=== PATIENT | female | born 1995 | race Caucasian/White ===

== ENCOUNTER 2019-09-28 19:23 | Emergency (ER) | payer OTHER ==
[~2019-09-28] VITALS: Ht 170.2 cm; Wt 82.7 kg
[2019-09-28] MEDS ORDERED: NS 1,000 ML IV ONE (20:15)
[2019-09-28] MEDS ORDERED: ONDANSETRON 4MG/2ML VIAL (J2405) IV ONE (20:15)
[2019-09-28 20:18] LABS: BASO % 0.3 % (0.0-1.0); EOS # 0.1 10^3/uL (0.0-0.5); HEMATOCRIT 45.3 % (36.0-47.0); HEMOGLOBIN 15.4 g/dl (12.0-15.5); LYMPH # 1.8 10^3/uL (1.5-5.0); MEAN CORPUSCULAR HEMOGLOBIN 31.8 pg (27.0-33.0); MEAN CORPUSCULAR VOLUME 93.4 fl (80.0-96.0); MONO # 0.6 10^3/uL (0.0-0.8); MONO % 6.5 % (0.0-5.0); NEUTROPHILS # 6.5 10^3/uL (1.5-8.5); PLATELET COUNT, AUTOMATED 203 10^3/uL (150-450); RED BLOOD COUNT 4.85 10^6/uL (4.00-5.40)
[2019-09-28 20:26] LABS: ALBUMIN 4.1 GM/DL (3.2-5.2); ALT/SGPT 23 U/L (12-78); BILIRUBIN,DIRECT 0.2 MG/DL (0.0-0.2); BILIRUBIN,TOTAL 0.6 MG/DL (0.2-1.0); BLOOD UREA NITROGEN 11 MG/DL (7-18); CALCIUM LEVEL 9.1 MG/DL (8.5-10.1); CARBON DIOXIDE LEVEL 28 MEQ/L (21-32); CHLORIDE LEVEL 107 MEQ/L (98-107); CK-MB VALUE MASS 3.5 NG/ML (<3.6); CPK CREATINE PHOSPHOKINASE 254 U/L (26-192); CREATININE FOR GFR 0.77 MG/DL (0.55-1.30); GLOMERULAR FILTRATION RATE > 60.0 (>60); GLUCOSE, FASTING 100 MG/DL (70-100); LIPASE 92 U/L (73-393); MB/CK RELATIVE INDEX 1.38 (< OR =4); POTASSIUM SERUM 3.7 MEQ/L (3.5-5.1); SODIUM LEVEL 141 MEQ/L (136-145); TOTAL PROTEIN 7.1 GM/DL (6.4-8.2); TROPONIN I < 0.02 NG/ML (< 0.10)
[2019-09-28 22:30] VITALS: BP 138/88
--- NOTE | 2019-09-29 08:29 | REP ---
Chest x-ray: Two views. History: Abdominal pain. Findings: EKG monitoring electrodes are seen overlying the chest. Lungs are well inflated and clear. The pleural angles are sharp. Heart size is normal. Pulmonary vasculature is not increased. Impression: Negative chest x-ray. Electronically Signed by Ronald Gomez MD 09/29/2019 08:21 A
--- NOTE | 2019-09-30 11:57 | ECGEPIP ---
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
== END 2019-09-28 22:59 | disposition home or self-care (01) ==
LOC: M ED 19:23
DX: F10.20 Alcohol dependence, uncomplicated (principal); F31.9 Bipolar disorder, unspecified; F17.210 Nicotine dependence, cigarettes, uncomplicated
CPT/HCPCS: 71046; 80048; 80076; 82550; 82553; 83690; 85025; 93005; 93041; 96361; 96374; 99285; J2405

== ENCOUNTER 2019-11-28 14:17 | Emergency (ER) | payer MEDICAID, OTHER ==
[~2019-11-28] VITALS: Ht 170.2 cm; Wt 80.9 kg
--- NOTE | 2019-11-28 15:27 | REP ---
Left ankle series: Four views. History: Trauma. Findings: Four views left ankle demonstrate anterolateral soft-tissue swelling. Ankle mortise is intact. No fractures seen. Impression: Anterolateral swelling. No fracture noted. Electronically Signed by Ronald Gomez MD 11/28/2019 03:19 P
--- NOTE | 2019-11-28 15:47 | REP ---
RIGHT KNEE, FIVE VIEWS: There is no evidence of an acute fracture, dislocation or intrinsic bone disease. IMPRESSION: No fracture or dislocation. Electronically Signed by Mike Blake MD 11/28/2019 05:40 P
[2019-11-28] MEDS ORDERED: ACETAMINOPHEN 325 MG TAB PO ONE (16:00)
[2019-11-28 17:10] VITALS: BP 114/67
== END 2019-11-28 17:10 | disposition home or self-care (01) ==
LOC: M ED 14:17
DX: S86.811A Strain of other muscle(s) and tendon(s) at lower leg level, right leg, initial encounter (principal); S93.402A Sprain of unspecified ligament of left ankle, initial encounter; Y04.8XXA Assault by other bodily force, initial encounter; Y92.018 Other place in single-family (private) house as the place of occurrence of the external cause; F17.210 Nicotine dependence, cigarettes, uncomplicated

== ENCOUNTER 2020-01-16 07:55 | Emergency (ER) | payer MEDICAID, OTHER ==
[~2020-01-16] VITALS: Ht 170.2 cm; Wt 78.3 kg
[2020-01-16] MEDS ORDERED: TRAZ-186 PO (08:04)
--- NOTE | 2020-01-16 10:13 | REP ---
RIGHT ANKLE, FOUR VIEWS: There is no evidence of an acute fracture, dislocation or intrinsic bone disease. The ankle mortise is anatomic. IMPRESSION: No fracture or dislocation. Electronically Signed by Mike Blake MD 01/16/2020 03:56 P
[2020-01-16 10:24] LABS: INFLUENZA A AMPLIFICATION POSITIVE (NEGATIVE); INFLUENZA B AMPLIFICATION NEGATIVE (NEGATIVE)
--- NOTE | 2020-01-16 11:15 | REP ---
Duplex extremity venous ultrasound: Right lower extremity. History: Right lower extremity paresthesias. Tail with ambulation. Rule out DVT . Findings: The deep veins are anechoic and fully compressible from the groin to the popliteal fossa in the right lower extremity. Color flow imaging is homogeneous. Spectral Doppler interrogation demonstrates intact respiratory variation in flow and normal manual augmentation of flow. There is no evidence of deep vein thrombosis. Impression: Negative right lower extremity duplex venous ultrasound. No evidence of deep vein thrombosis. Electronically Signed by Ronald Gomze MD 01/16/2020 11:06 A
--- NOTE | 2020-01-16 12:00 | REP ---
RIGHT LOWER EXTREMITY DUPLEX DOPPLER ARTERIAL ULTRASOUND: Real-time ultrasound evaluation and duplex Doppler interrogation of right lower extremity arterial system is performed. JESSIE is 1.1. Triphasic waveforms are seen throughout. There is occlusion of the very distal right posterior tibial artery below the level of the ankle. Otherwise, more proximally there is no significant narrowing, stenosis and certainly no evidence of arterial occlusion. Normal flow velocities are visualized. 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 Otherwise there is no other evidence of significant luminal narrowing or stenosis. No arterial occlusion. Electronically Signed by Mike Blake MD 01/16/2020 04:08 P
[2020-01-16] MEDS ORDERED: NICOTINE 21MG/24HR 1 EA TRANSDERMAL TD ONE (13:00)
[2020-01-16 13:46] VITALS: BP 102/71
--- NOTE | 2020-01-16 14:40 | CR.PDOC ---
General Date of Consultation: Jan 16, 2020 Consultation REASON FOR CONSULTATION/CHIEF COMPLAINT: Right foot complaints HISTORY OF PRESENT ILLNESS: is a 24-year-old patient with complaint s of paleness to the plantar aspect of her foot when she ambulates, but improved when she is at rest or elevates her leg. She also describes numbness and tingling when the paleness occurs. She says this been occurring since October 2019, and she never had episodes like this before that. She is able to ambulate when plantars aspect of her foot does become pale, but it does feel very uncomfortable. She says that it takes a while for the color and feeling to return when this occurs. It does not happen on the left foot. She denies any history of trauma or injury to the right ankle or foot. She had an arterial duplex that revealed triphasic flow through the arterial system with an JESSIE greater than 1.1, but a short segment occlusion of the posterior tibial artery at the ankle. She is a smoker, smokes 1-2 packs per day. I examined her foot, and she has a warm pink foot with palpable DP pulse, triphasic signal at the PT and DP on the right and left, and less than 1 second capillary refill in both feet. There is no ischemic changes present in either lower extremity. She says when her legs are elevated she does not have any of the symptoms. She says it does not depend on whether or not it is cold outside, although the symptoms in general did start when the winter season was underway. She is wearing a nicotine patch, which I encourage her to avoid. If she is having any kind of vasospastic episodes or phenomenon similar to Raynauds phenomenon, smoking cessation and avoiding nicotine vasoconstriction will be critical to avoid vasospastic events. It certainly is possible that she has some other neuropathic cause for vasoconstriction, but this seems unlikely. She suffered a fall a while back with a light sprain of her right knee, but no posterior dislocation no arterial injur y and did not have trouble ambulating after the event. To be honest, I am not exactly sure what is causing the plantar aspect of her foot to appear white and numb, but my guess is that his vasospasm. I think it would be worthwhile to get a CTA to get a better image of her lower extremity vascular system. I'd like to see if there is any arterial injury, dissection, or other phenomenon that could have led to an embolic event at the posterior tibial artery, and what her arterial limitations might be. The patient does not want to get this imaging today, and says she would like to come back and do the outpatient clinic. From my standpoint this is fine. She has no limb threatening ischemic changes that I can see. We had a lengthy discussion about smoking cessation and the importance of this. The patient at this point does not necessarily ready to quit. She does occasionally smoke marijuana but denies any other illicit drug use, and does not use LSD, which can cause severe vasospasm. She does not take any vasoconstr ictive medications. I think at this point my recommendations are for smoking cessation, keeping the foot warm, and following up outpatient with a CTA of the abdomen and pelvis and lower extremity. The patient is agreeable to this plan and was extensively counseled. ALLERGIES: Please see below. HOME MEDICATIONS: Please see below. PAST MEDICAL HISTORY: 1. Anxiety and depression 2. Tobacco abuse PAST SURGICAL HISTORY: None FAMILY HISTORY: Heart disease SOCIAL HISTORY: Positive tobacco alcohol and marijuana use. REVIEW OF SYSTEMS: CONSTITUTIONAL: Denies fevers chills HEENT: Denies vision changes or dysphagia CARDIOVASCULAR: Denies chest pain or palpitations RESPIRATORY: Denies shortness of breath or cough GENITOURINARY: Denies dysuria MUSCULOSKELETAL: Denies claudication or trouble with ambulation GASTROINTESTINAL: Denies nausea vomiting diarrhea SKIN: Denies rashes or skin cancers NEUROLOGICAL: Denies headaches or seizures PSYCHIATRIC: Positive anxiety depression ENDOCRINE: Denies diabetes or thyroid disease HEMATOLOGIC/LYMPHATIC: Denies anemia ALLERGIC/IMMUNOLOGIC: Denies PHYSICAL EXAMINATION: VITAL SIGNS: Please see below. GENERAL APPEARANCE: Medically stable no acute distress HEENT: Normocephalic vision grossly intact tympanic membranes intact RESPIRATORY: Clear to auscultation CARDIOVASCULAR: Regular rate and rhythm ABDOMEN: Soft nontender nondistended EXTREMITIES: Bilateral lower extremities with palpable DP and left palpable PT pulses. Triphasic signal over the DP and PT bilateral lower extremities. Feet are warm and well perfused with less than 1 second capillary refill. NEUROLOGICAL: Alert and oriented 3, moves all extremities equally, sensation and motor intact bilateral lower and upper extremities PSYCHIATRIC: Pleasant and cooperative LABORATORY DATA: Please see below. ASSESSMENT/PLAN: 24-year-old patient with complaint of the plantar aspect of her right foot turning white with numbness and tingling when she ambulates 1. Recommend smoking cessation. Recommend avoiding nicotine replacement products as this can make vasoconstriction much worse 2. Recommend keeping feet very warm during the winter to prevent vasoconstri ction 3. Recommend follow up in clinic with a CTA of the abdomen pelvis and lower extremity runoff to make sure we are not missing a more significant vascular pathology We appreciate the opportunity to participate in the care of this patient. Vital Signs/I&O Vital Signs Date Time Temp Pulse Resp B/P (MAP) Pulse Ox O2 Delivery O2 Flow Rate FiO2 01/16/20 13:46 97.3 97 20 102/71 (81) 96 Room Air Laboratory Data Labs 24H Laboratory Tests 2 01/16/20 09:48: Influenza Type A (RT-PCR) POSITIVEH, Influenza Type B (RT-PCR) NEGATIVE Microbiology Microbiology 01/16/20 Group A Streptococcus Screen (ANTONELLA), Received Pending Allergies Coded Allergies: No Known Drug Allergies (Verified Allergy, Unknown, 09/28/19) Home Medications Scheduled Trazodone HCl (Trazodone HCl) 50 Mg Tablet, 1 TAB PO QPM for 30 Days, #30 (Reported) YANA GOMEZ MD Jan 16, 2020 14:40
[2020-01-17] MEDS ORDERED: ASPI81TA85 PO (07:58)
== END 2020-01-16 14:07 | disposition home or self-care (01) ==
LOC: M ED 07:55
DX: I74.3 Embolism and thrombosis of arteries of the lower extremities (principal); R20.2 Paresthesia of skin; J09.X2 Influenza due to identified novel influenza A virus with other respiratory manifestations; F10.10 Alcohol abuse, uncomplicated; F31.9 Bipolar disorder, unspecified; F17.210 Nicotine dependence, cigarettes, uncomplicated; Z79.82 Long term (current) use of aspirin; Z79.899 Other long term (current) drug therapy

== ENCOUNTER 2020-01-17 07:51 | Emergency (ER) | payer OTHER ==
[~2020-01-17] VITALS: Ht 170.2 cm; Wt 77.2 kg
[~2020-01-17 07:51] MED LIST: TRAZ-186 PO
[2020-01-17] MEDS ORDERED: ASPI81TA85 PO (07:58)
[2020-01-17] MEDS ORDERED: ISOVUE-370 76% 100ML VIAL (Q9967) As Ordered ONE (08:51)
--- NOTE | 2020-01-17 10:25 | REP ---
CT ANGIOGRAM ABDOMINAL AORTA AND BILATERAL LOWER EXTREMITIES: CT angiogram abdominal aorta and bilateral lower extremities performed following the intravenous administration of 100 mL of Isovue-370. Saggital, coronal, and MIP reconstruction images performed. Visualized lung bases are clear. The liver, spleen, adrenals, pancreas, and kidneys are unremarkable, except for a cyst in the upper pole of the left kidney, 2.7 cm in diameter. Abdominal aorta is normal in caliber with no aneurysm. There is no adenopathy, free air, or free fluid in the abdomen or pelvis. No pelvic mass is seen. The urinary bladder is not well distended and not well evaluated. Normal-appearing patent mesenteric arteries and renal arteries are noted. Common iliac, external iliac, internal iliac, common femoral, superficial femoral, and popliteal arteries demonstrate no significant narrowing or stenosis. There is no arterial occlusion bilaterally. There appear to be tiny hypoplastic peroneal arteries symmetrically bilaterally. There is two-vessel runoff into each foot. IMPRESSION: No significant arterial stenosis. No arterial occlusion. Electronically Signed by Mike Blake MD 01/17/2020 07:43 P
[2020-01-17 10:58] VITALS: BP 102/60
== END 2020-01-17 10:59 | disposition home or self-care (01) ==
LOC: M ED 07:51
DX: M79.671 Pain in right foot (principal); Z79.82 Long term (current) use of aspirin; F17.210 Nicotine dependence, cigarettes, uncomplicated
CPT/HCPCS: 36415; 75635; 80047; 84702; 99284; Q9967

== ENCOUNTER 2020-01-31 18:22 | Emergency (ER) | payer OTHER ==
[~2020-01-31] VITALS: Ht 170.2 cm; Wt 78.8 kg
[~2020-01-31 18:22] MED LIST changes: +ASPI81TA85 PO
[2020-01-31 19:29] LABS: BASO % 0.3 % (0.0-1.0); EOS # 0.1 10^3/uL (0.0-0.5); HEMATOCRIT 44.4 % (36.0-47.0); HEMOGLOBIN 15.3 g/dl (12.0-15.5); LYMPH # 2.2 10^3/uL (1.5-5.0); MEAN CORPUSCULAR HEMOGLOBIN 33.2 pg (27.0-33.0); MEAN CORPUSCULAR HGB CONC 34.5 g/dl (32.0-36.5); MEAN CORPUSCULAR VOLUME 96.3 fl (80.0-96.0); MONO # 0.6 10^3/uL (0.0-0.8); NEUTROPHILS # 6.7 10^3/uL (1.5-8.5); NEUTROPHILS % 69.4 % (36.0-66.0); PLATELET COUNT, AUTOMATED 180 10^3/uL (150-450); RED BLOOD COUNT 4.61 10^6/uL (4.00-5.40); WHITE BLOOD COUNT 9.7 10^3/uL (4.0-10.0)
[2020-01-31 19:37] LABS: AMPHETAMINES LEVEL URINE NEGATIVE (NEGATIVE); BARBITURATES URINE NEGATIVE (NEGATIVE); BENZODIAZEPINES URINE NEGATIVE (NEGATIVE); CANNABINOIDS URINE POSITIVE (NEGATIVE); COCAINE METABOLITE URINE NEGATIVE (NEGATIVE); METHADONE URINE NEGATIVE (NEGATIVE); OPIATES URINE NEGATIVE (NEGATIVE); PHENCYCLIDINE URINE NEGATIVE (NEGATIVE)
[2020-01-31] MEDS ORDERED: NS 1,000 ML IV ONE (19:45)
[2020-01-31 19:58] LABS: ACETAMINOPHEN LEVEL < 2.0 UG/ML (10.0-30.0); ALBUMIN 3.5 GM/DL (3.2-5.2); ALT/SGPT 21 U/L (12-78); BILIRUBIN,DIRECT 0.2 MG/DL (0.0-0.2); BILIRUBIN,TOTAL 0.5 MG/DL (0.2-1.0); BLOOD UREA NITROGEN 11 MG/DL (7-18); CALCIUM LEVEL 8.3 MG/DL (8.5-10.1); CARBON DIOXIDE LEVEL 24 MEQ/L (21-32); CHLORIDE LEVEL 111 MEQ/L (98-107); CPK CREATINE PHOSPHOKINASE 150 U/L (26-192); CREATININE FOR GFR 0.69 MG/DL (0.55-1.30); ETHYL ALCOHOL (ETHANOL) < 0.003 % (0.000-0.010); GLOMERULAR FILTRATION RATE > 60.0 (>60); GLUCOSE, FASTING 88 MG/DL (70-100); POTASSIUM SERUM 3.5 MEQ/L (3.5-5.1); SALICYLATE LEVEL 2.3 MG/DL (5.0-30.0); SODIUM LEVEL 142 MEQ/L (136-145); TOTAL PROTEIN 6.8 GM/DL (6.4-8.2)
[2020-01-31 20:30] VITALS: BP 113/67
--- NOTE | 2020-02-01 18:40 | ECGEPIP ---
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
== END 2020-01-31 20:42 | disposition home or self-care (01) ==
LOC: M ED 18:22
DX: F10.20 Alcohol dependence, uncomplicated (principal); E86.9 Volume depletion, unspecified; R11.2 Nausea with vomiting, unspecified; F41.9 Anxiety disorder, unspecified; F17.200 Nicotine dependence, unspecified, uncomplicated; Z79.899 Other long term (current) drug therapy
CPT/HCPCS: 80048; 80076; 80307; 82550; 84443; 85025; 93005; 93041; 94760; 96360; 99285; G0480

== ENCOUNTER 2020-02-29 01:00 | Emergency (ER) | payer OTHER ==
[~2020-02-29] VITALS: Ht 170.2 cm; Wt 80.5 kg
[2020-02-29 01:01] VITALS: BP 139/76
[2020-02-29] MEDS ORDERED: LORA2TAB14 PO (01:12)
== END 2020-02-29 02:13 | disposition home or self-care (01) ==
LOC: M ED 01:00
DX: F41.1 Generalized anxiety disorder (principal); F31.9 Bipolar disorder, unspecified; F17.218 Nicotine dependence, cigarettes, with other nicotine-induced disorders

== ENCOUNTER 2020-03-19 14:05 | Emergency (ER) | payer OTHER ==
[~2020-03-19] VITALS: Ht 170.2 cm; Wt 81.5 kg
[~2020-03-19 14:05] MED LIST changes: +LORA2TAB14 PO
[2020-03-19 15:27] LABS: BASO % 0.4 % (0.0-1.0); EOS # 0.1 10^3/uL (0.0-0.5); EOS % 1.3 % (0.0-3.0); HEMATOCRIT 46.5 % (36.0-47.0); LYMPH # 1.7 10^3/uL (1.5-5.0); LYMPH % 16.1 % (24.0-44.0); MEAN CORPUSCULAR HEMOGLOBIN 33.3 pg (27.0-33.0); MEAN CORPUSCULAR HGB CONC 34.4 g/dl (32.0-36.5); MEAN CORPUSCULAR VOLUME 96.9 fl (80.0-96.0); MONO # 0.7 10^3/uL (0.0-0.8); MONO % 6.6 % (0.0-5.0); NEUTROPHILS # 8.1 10^3/uL (1.5-8.5); NEUTROPHILS % 75.3 % (36.0-66.0); PLATELET COUNT, AUTOMATED 241 10^3/uL (150-450); WHITE BLOOD COUNT 10.7 10^3/uL (4.0-10.0)
[2020-03-19] MEDS ORDERED: HEPARIN SOD (PORCINE) 5000UNITS/ML VIAL (J1644 PER 1000UNITS) IV ONE (15:45)
[2020-03-19] MEDS ORDERED: HEPARIN (FLUSH) 100 UNITS in SODIUM CHLORIDE 0.45% 99 ML IV SCH (15:45)
[2020-03-19] MEDS ORDERED: HEPARIN 25,000 UNITS/250 ML D5W BAG (100 UNITS/ML) (J1644 PER 1000UNITS) As Ordered ONE (16:04)
[2020-03-19] MEDS ORDERED: HEPARIN DRIP 25,000 UNITS in IV 1 EA IV SCH (16:06)
[2020-03-19] MEDS ORDERED: MORPHINE 4 MG/ML 1ML VIAL/SYRINGE (J2270) IV ONE (16:15)
[2020-03-19 17:33] VITALS: BP 134/82
== END 2020-03-19 17:36 | disposition short-term general hospital (02) ==
LOC: M ED 14:05
DX: I70.291 Other atherosclerosis of native arteries of extremities, right leg (principal); M79.89 Other specified soft tissue disorders; R20.0 Anesthesia of skin; Z86.79 Personal history of other diseases of the circulatory system; F17.200 Nicotine dependence, unspecified, uncomplicated; F10.10 Alcohol abuse, uncomplicated
CPT/HCPCS: 36415; 80047; 83605; 84702; 85025; 96365; 96375; 99284; J1644; J2270

== ENCOUNTER 2020-04-03 16:40 | Emergency (ER) | payer OTHER ==
[~2020-04-03] VITALS: Ht 170.2 cm; Wt 81.8 kg
[2020-04-03] MEDS ORDERED: ISOVUE-370 76% 100ML VIAL As Ordered ONE (17:29)
[2020-04-03 17:33] LABS: BASO % 0.3 % (0.0-1.0); EOS # 0.4 10^3/uL (0.0-0.5); EOS % 4.9 % (0.0-3.0); HEMATOCRIT 41.3 % (36.0-47.0); HEMOGLOBIN 13.7 g/dl (12.0-15.5); LYMPH # 1.8 10^3/uL (1.5-5.0); LYMPH % 20.1 % (24.0-44.0); MEAN CORPUSCULAR HEMOGLOBIN 32.2 pg (27.0-33.0); MEAN CORPUSCULAR HGB CONC 33.2 g/dl (32.0-36.5); MEAN CORPUSCULAR VOLUME 97.2 fl (80.0-96.0); MONO # 0.6 10^3/uL (0.0-0.8); MONO % 6.9 % (0.0-5.0); NEUTROPHILS % 67.5 % (36.0-66.0); PLATELET COUNT, AUTOMATED 267 10^3/uL (150-450); RED BLOOD COUNT 4.25 10^6/uL (4.00-5.40)
[2020-04-03 17:46] LABS: INR 1.16; PROTHROMBIN TIME 14.5 SECONDS (11.8-14.0)
[2020-04-03 17:47] LABS: PARTIAL THROMBOPLASTIN TIME 34.1 SECONDS (25.0-38.4)
[2020-04-03] MEDS ORDERED: ASPI81TA26 (17:49)
[2020-04-03] MEDS ORDERED: ELIQ5TAB (17:49)
[2020-04-03] MEDS ORDERED: OXYC-517 (17:49)
[2020-04-03] MEDS ORDERED: GABA-843 (17:49)
[2020-04-03] MEDS ORDERED: oxyCODONE 5MG TAB PO ONE (18:00)
--- NOTE | 2020-04-03 19:28 | REPVR ---
PROCEDURE INFORMATION: Exam: CTA Right Lower Extremity With Contrast Exam date and time: 04/03/2020 5:36 PM Age: 24 years old Clinical indication: Condition or disease; Other: ? Post op hematoma; Additional info: Assess right fem-pop bypass site; ? Post op hematoma TECHNIQUE: Imaging protocol: CTA images of the Right lower extremity with intravenous contrast using CT angiography protocol. 3D rendering: MIP and/or 3D reconstructed images were created by the technologist. MIP and/or 3D reconstructed images were created and reviewed. Radiation optimization: All CT scans at this facility use at least one of these dose optimization techniques: automated exposure control; mA and/or kV adjustment per patient size (includes targeted exams where dose is matched to clinical indication); or iterative reconstruction. Contrast material: ISOVUE 370; Contrast volume: 100 ml; Contrast route: IV; COMPARISON: CR Ankle, complete 01/16/2020 9:44 AM FINDINGS: Right femoral/popliteal arteries: There is occlusion of the distal right superficial femoral artery in the adductor canal. There is a graft extending from a the femoral artery superior to the occlusion. It extends medially and anastomosis with the infrarenal popliteal artery. There is no evidence of an aneurysm. There is no evidence of contrast extravasation to indicate a site of active bleeding. Right infrapopliteal arteries: In the right lower leg there is 2 vessel runoff through the anterior and common peroneal arteries. The posterior tibial artery is occluded. Bones/joints: No acute fracture. No dislocation. Soft tissues: There is a small amount of ecchymosis in the subcutaneous fat of the right leg medially at the site of surgery. No large hematoma. IMPRESSION: There is right superficial femoral artery distal occlusion. There is a patent femoral popliteal bypass graft. There is no evidence of aneurysm or contrast extravasation to indicate a site of active bleeding. There is 2 vessel runoff. PROCEDURE INFORMATION: Exam: CTA Left Lower Extremity With Contrast Exam date and time: 04/03/2020 5:36 PM Age: 24 years old Clinical indication: Condition or disease; Other: ? Post op hematoma; Additional info: Assess right fem-pop bypass site; ? Post op hematoma TECHNIQUE: Imaging protocol: Computed tomographic angiography of the Left lower extremity with intravenous contrast. 3D rendering: MIP and/or 3D reconstructed images were created and reviewed. COMPARISON: CR Ankle, complete 01/16/2020 9:44 AM FINDINGS: Left femoral/popliteal arteries: No occlusion or significant stenosis. Left infrapopliteal arteries: The left lower leg there is continuous runoff through the anterior tibial and common peroneal arteries. There is no posterior tibial artery. Bones/joints: No acute fracture. No dislocation. Soft tissues: Unremarkable. IMPRESSION: No stenosis from the left common iliac artery through the left popliteal artery. There is 2 vessel runoff through the common peroneal and anterior tibial arteries. No posterior tibial artery visualized. Electronically signed by: Azael Palomo On 04/03/2020 19:27:55 PM
[2020-04-03 19:29] VITALS: BP 117/70
== END 2020-04-03 19:42 | disposition home or self-care (01) ==
LOC: M ED 16:40 → EDBD 16:40 → M ED 19:42
DX: S80.11XA Contusion of right lower leg, initial encounter (principal); X58.XXXA Exposure to other specified factors, initial encounter; Y92.007 Garden or yard of unspecified non-institutional (private) residence as the place of occurrence of the external cause; Y93.9 Activity, unspecified; Y99.9 Unspecified external cause status; F31.9 Bipolar disorder, unspecified; F10.10 Alcohol abuse, uncomplicated
CPT/HCPCS: 36415; 73706; 80047; 85025; 85610; 85730; 99284; Q9967

== ENCOUNTER 2020-08-26 16:52 | Emergency (ER) | payer OTHER ==
[~2020-08-26] VITALS: Ht 170.2 cm; Wt 88.9 kg
[~2020-08-26 16:52] MED LIST changes: +ASPI81TA26; -ASPI81TA85 PO; +ASPI81TA86 PO; +ELIQ5TAB; +GABA-843 PO; +OXYC-517
[2020-08-26 16:53] VITALS: BP 118/72
[2020-08-26] MEDS ORDERED: NS 1,000 ML IV ONE (18:00)
[2020-08-26] MEDS ORDERED: GABAPENTIN 300 MG CAP PO ONE (18:00)
--- NOTE | 2020-08-26 18:05 | REPVR ---
PROCEDURE INFORMATION: Exam: US Duplex Right Lower Extremity Veins, Limited Exam date and time: 08/26/2020 5:53 PM Age: 25 years old Clinical indication: Pain; Leg, lower and foot; Right; Prior surgery; Surgery date: 6+ months; Surgery type: Fem/tib bpg; Additional info: Left foot pain TECHNIQUE: Imaging protocol: Real-time Duplex ultrasound of the Right Lower Extremity with 2-D noriega scale, color Doppler flow and spectral waveform analysis with image documentation. Limited exam was focused on the right lower extremity veins. COMPARISON: US Duplex, Ext,LOWER veins,unilat RIGHT 01/16/2020 10:10 AM FINDINGS: Right deep veins: Unremarkable. The common femoral, femoral, proximal profunda femoral and popliteal veins are patent without thrombus. Normal Doppler waveforms. Normal compressibility and/or augmentation response. Right superficial veins: Unremarkable as visualized. Soft tissues: Unremarkable. IMPRESSION: No evidence of deep vein thrombosis. Electronically signed by: Zan Gallego On 08/26/2020 18:04:54 PM
== END 2020-08-26 18:26 | disposition left against medical advice (07) ==
LOC: M ED 16:52
DX: G57.91 Unspecified mononeuropathy of right lower limb (principal); Z87.440 Personal history of urinary (tract) infections; Z95.820 Peripheral vascular angioplasty status with implants and grafts

== ENCOUNTER 2020-12-07 19:27 | Emergency (ER) | payer OTHER ==
[~2020-12-07] VITALS: Ht 170.2 cm; Wt 97.3 kg
[~2020-12-07 19:27] MED LIST changes: +GABA-282 PO; -GABA-843 PO
[2020-12-07] MEDS ORDERED: NS 1,000 ML IV ONE (20:15)
--- NOTE | 2020-12-07 20:23 | REPVR ---
PROCEDURE INFORMATION: Exam: CT Head Without Contrast Exam date and time: 12/07/2020 8:02 PM Age: 25 years old Clinical indication: Injury or trauma; Fall; Blunt trauma (contusions or hematomas); Additional info: Multiple falls TECHNIQUE: Imaging protocol: Computed tomography of the head without contrast. Radiation optimization: All CT scans at this facility use at least one of these dose optimization techniques: automated exposure control; mA and/or kV adjustment per patient size (includes targeted exams where dose is matched to clinical indication); or iterative reconstruction. COMPARISON: No relevant prior studies available. FINDINGS: Brain: Small punctate densities demonstrated in the anterior right parietal lobe located at the noriega-white matter junction, findings of uncertain significance. Findings may represent prominent vascular structures. Posttraumatic etiology is not excluded and should be correlated clinically. Cerebral ventricles: No ventriculomegaly. Bones/joints: Unremarkable. No acute fracture. Paranasal sinuses: Visualized sinuses are unremarkable. No fluid levels. Mastoid air cells: Visualized mastoid air cells are well aerated. Soft tissues: Unremarkable. IMPRESSION: Small punctate densities demonstrated in the anterior right parietal lobe located at the noriega-white matter junction, findings of uncertain significance. Findings may represent prominent vascular structures. Posttraumatic etiology is not excluded and should be correlated clinically. Electronically signed by: Clem Gillis On 12/07/2020 20:23:38 PM
[2020-12-07 20:26] LABS: BASO % 0.3 % (0.0-1.0); EOS # 0.2 10^3/uL (0.0-0.5); EOS % 1.6 % (0.0-3.0); HEMATOCRIT 42.9 % (36.0-47.0); HEMOGLOBIN 14.3 g/dl (12.0-15.5); LYMPH % 20.5 % (24.0-44.0); MEAN CORPUSCULAR HEMOGLOBIN 31.6 pg (27.0-33.0); MEAN CORPUSCULAR HGB CONC 33.3 g/dl (32.0-36.5); MEAN CORPUSCULAR VOLUME 94.7 fl (80.0-96.0); MONO # 0.9 10^3/uL (0.0-0.8); MONO % 8.9 % (0.0-5.0); NEUTROPHILS # 6.8 10^3/uL (1.5-8.5); NEUTROPHILS % 68.3 % (36.0-66.0); PLATELET COUNT, AUTOMATED 229 10^3/uL (150-450); RED BLOOD COUNT 4.53 10^6/uL (4.00-5.40); WHITE BLOOD COUNT 9.9 10^3/uL (4.0-10.0)
[2020-12-07 20:52] LABS: HCG, SERUM QUALITATIVE NEGATIVE (NEGATIVE)
[2020-12-07 20:55] LABS: ALBUMIN 3.7 GM/DL (3.2-5.2); ALT/SGPT 24 U/L (12-78); BILIRUBIN,DIRECT 0.1 MG/DL (0.0-0.2); BILIRUBIN,TOTAL 0.4 MG/DL (0.2-1.0); LIPASE 111 U/L (73-393); TOTAL PROTEIN 6.7 GM/DL (6.4-8.2)
[2020-12-07 21:09] LABS: ETHYL ALCOHOL (ETHANOL) 0.018 % (0.000-0.010)
[2020-12-07 22:30] LABS: AMPHETAMINES LEVEL URINE NEGATIVE (NEGATIVE); BARBITURATES URINE NEGATIVE (NEGATIVE); BENZODIAZEPINES URINE NEGATIVE (NEGATIVE); CANNABINOIDS URINE POSITIVE (NEGATIVE); COCAINE METABOLITE URINE POSITIVE (NEGATIVE); METHADONE URINE NEGATIVE (NEGATIVE); OPIATES URINE NEGATIVE (NEGATIVE); PHENCYCLIDINE URINE NEGATIVE (NEGATIVE)
[2020-12-07 22:53] VITALS: BP 122/56
--- NOTE | 2020-12-08 07:05 | ECGEPIP ---
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
== END 2020-12-07 22:55 | disposition home or self-care (01) ==
LOC: M ED 19:27
DX: S06.0X0A Concussion without loss of consciousness, initial encounter (principal); W18.39XA Other fall on same level, initial encounter; Y92.89 Other specified places as the place of occurrence of the external cause; F10.129 Alcohol abuse with intoxication, unspecified; Y90.0 Blood alcohol level of less than 20 mg/100 ml; F14.10 Cocaine abuse, uncomplicated; E86.0 Dehydration; R07.89 Other chest pain; F17.210 Nicotine dependence, cigarettes, uncomplicated
CPT/HCPCS: 70450; 80047; 80076; 80307; 81001; 83690; 84703; 85025; 93005; 96360; 96361; 99284; G0480

== ENCOUNTER 2022-03-24 20:12 | Emergency (ER) | payer OTHER ==
[~2022-03-24] VITALS: Ht 170.2 cm; Wt 95.0 kg
[2022-03-24 20:13] VITALS: BP 115/78
== END 2022-03-24 21:56 | disposition left against medical advice (07) ==
LOC: M ED 20:12
DX: Z53.21 Procedure and treatment not carried out due to patient leaving prior to being seen by health care provider (principal)

== ENCOUNTER 2022-10-28 07:15 | Emergency (ER) | payer OTHER ==
[~2022-10-28] VITALS: Ht 170.2 cm; Wt 91.6 kg
[2022-10-28] MEDS ORDERED: ACET-683 PO (07:25)
[2022-10-28 08:19] LABS: BASO % 0.5 % (0.0-1.0); EOS # 0.1 10^3/uL (0.0-0.5); EOS % 1.8 % (0.0-3.0); HEMATOCRIT 43.1 % (36.0-47.0); HEMOGLOBIN 14.5 g/dl (12.0-15.5); LYMPH # 2.1 10^3/uL (1.5-5.0); LYMPH % 35.2 % (24.0-44.0); MEAN CORPUSCULAR HEMOGLOBIN 31.9 pg (27.0-33.0); MEAN CORPUSCULAR HGB CONC 33.6 g/dl (32.0-36.5); MEAN CORPUSCULAR VOLUME 94.7 fl (80.0-96.0); MONO # 0.4 10^3/uL (0.0-0.8); MONO % 7.3 % (2.0-8.0); NEUTROPHILS # 3.3 10^3/uL (1.5-8.5); PLATELET COUNT, AUTOMATED 185 10^3/uL (150-450); RED BLOOD COUNT 4.55 10^6/uL (4.00-5.40)
[2022-10-28 08:46] LABS: ERYTHROCYTE SEDIMENTATION RATE 2 mm/hr (0-20)
[2022-10-28 08:47] LABS: LIPASE 26 U/L (12-53)
[2022-10-28 08:49] LABS: ALBUMIN 3.2 G/DL (3.2-5.2); ALKALINE PHOSPHATASE 85 U/L (46-116); ALT/SGPT 21 U/L (7.0-40); AST/SGOT 17 U/L (<34); BILIRUBIN,TOTAL 0.7 MG/DL (0.3-1.2); BLOOD UREA NITROGEN 13 MG/DL (9-23); C REACTIVE PROTEIN QUANTITATIV < 0.40 MG/DL (<1.0); CALCIUM LEVEL 8.9 MG/DL (8.5-10.1); CARBON DIOXIDE LEVEL 27 MMOL/L (20-31); CHLORIDE LEVEL 107 MMOL/L (98-107); CREATININE FOR GFR 0.76 MG/DL (0.55-1.30); GLOMERULAR FILTRATION RATE > 60.0 (>60); GLUCOSE, FASTING 89 MG/DL (60-100); SODIUM LEVEL 140 MMOL/L (136-145)
[2022-10-28 09:32] VITALS: BP 100/56
[2022-10-28] MEDS ORDERED: CIPR-249 PO (09:49)
[2022-10-28] MEDS ORDERED: PYRI1TAB5 PO (09:50)
[2022-10-28] MEDS ORDERED: CIPROFLOXACIN 500MG TABLET PO ONE (09:55)
[2022-10-28] MEDS ORDERED: PHENAZOPYRIDINE 100 MG TAB PO ONE (10:00)
== END 2022-10-28 10:32 | disposition home or self-care (01) ==
LOC: M ED 07:15
DX: N30.00 Acute cystitis without hematuria (principal); Z87.440 Personal history of urinary (tract) infections; Z87.448 Personal history of other diseases of urinary system; Z87.891 Personal history of nicotine dependence

== ENCOUNTER 2023-04-27 08:29 | Emergency (ER) | payer OTHER ==
[~2023-04-27] VITALS: Ht 170.2 cm; Wt 105.5 kg
[~2023-04-27 08:29] MED LIST changes: +ACET-683 PO; +CIPR-249 PO; +PYRI1TAB5 PO
[2023-04-27 10:01] VITALS: BP 120/70; TEMP 98; O2SAT 100
[2023-04-27] MEDS ORDERED: NAPR-837 PO (10:05)
== END 2023-04-27 10:29 | disposition home or self-care (01) ==
LOC: M ED 08:29
DX: S83.92XA Sprain of unspecified site of left knee, initial encounter (principal); S93.402A Sprain of unspecified ligament of left ankle, initial encounter; X50.0XXA Overexertion from strenuous movement or load, initial encounter; Y92.009 Unspecified place in unspecified non-institutional (private) residence as the place of occurrence of the external cause; Y93.01 Activity, walking, marching and hiking; Y99.8 Other external cause status

== ENCOUNTER 2023-10-16 13:11 | Inpatient (IN) | payer MEDICAID, OTHER ==
[~2023-10-16] VITALS: Ht 170.2 cm; Wt 100.0 kg
[~2023-10-16 13:11] MED LIST changes: +NAPR-837 PO
[2023-10-16] MEDS ORDERED: MED REC IN PROGRESS XX SCH (14:00)
[2023-10-16 14:10] LABS: HEMATOCRIT 41.8 % (36.0-47.0); HEMOGLOBIN 14.4 g/dl (12.0-15.5); MEAN CORPUSCULAR HEMOGLOBIN 32.6 pg (27.0-33.0); MEAN CORPUSCULAR HGB CONC 34.4 g/dl (32.0-36.5); MEAN CORPUSCULAR VOLUME 94.6 fl (80.0-96.0); PLATELET COUNT, AUTOMATED 194 10^3/uL (150-450); RED BLOOD COUNT 4.42 10^6/uL (4.00-5.40); WHITE BLOOD COUNT 14.4 10^3/uL (4.0-10.0)
[2023-10-16 14:31] LABS: ETHYL ALCOHOL (ETHANOL) 0.091 % (0.000-0.010)
[2023-10-16 14:33] LABS: ALBUMIN 4.1 G/DL (3.2-5.2); ALKALINE PHOSPHATASE 84 U/L (46-116); ALT/SGPT 21 U/L (7.0-40); AST/SGOT 40 U/L (<34); BILIRUBIN,DIRECT 0.3 MG/DL (<0.4); BILIRUBIN,TOTAL 0.8 MG/DL (0.3-1.2); BLOOD UREA NITROGEN 9 MG/DL (9-23); CALCIUM LEVEL 8.3 MG/DL (8.5-10.1); CARBON DIOXIDE LEVEL 23 MMOL/L (20-31); CHLORIDE LEVEL 104 MMOL/L (98-107); CREATININE FOR GFR 0.68 MG/DL (0.55-1.30); GLOMERULAR FILTRATION RATE > 60.0 (>60); GLUCOSE, FASTING 74 MG/DL (60-100); POTASSIUM SERUM 3.5 MMOL/L (3.5-5.1); SALICYLATE LEVEL < 3.0 MG/DL (<30); SODIUM LEVEL 137 MMOL/L (136-145)
[2023-10-16 14:36] LABS: THYROID STIMULATING HORMONE 2.195 uIU/ML (0.55-4.78)
[2023-10-16 14:42] LABS: HCG, SERUM QUALITATIVE NEGATIVE (NEGATIVE)
[2023-10-16 14:43] LABS: BARBITURATES URINE NEGATIVE (NEGATIVE); BENZODIAZEPINES URINE NEGATIVE (NEGATIVE); METHADONE URINE NEGATIVE (NEGATIVE); OPIATES URINE NEGATIVE (NEGATIVE); PHENCYCLIDINE URINE NEGATIVE (NEGATIVE)
[2023-10-16 14:45] LABS: AMPHETAMINES LEVEL URINE POSITIVE (NEGATIVE); CANNABINOIDS URINE POSITIVE (NEGATIVE); COCAINE METABOLITE URINE POSITIVE (NEGATIVE)
[2023-10-16] MEDS ORDERED: MED REC CURRENTLY UNOBTAINABLE XX SCH (15:55)
[2023-10-16] MEDS ORDERED: HOME MED LIST COMPLETE! XX SCH (16:40)
[2023-10-16] MEDS ORDERED: LORazepam 1 MG TAB PO STA (17:29)
[2023-10-16] MEDS ORDERED: MOM 30ML SUSPENSION UDC PO PRN (17:50)
[2023-10-16] MEDS ORDERED: ACETAMINOPHEN TAB 650MG DOSE (2X325MG) PO PRN (17:50)
[2023-10-16] MEDS ORDERED: diphenhydrAMINE 25MG CAP PO PRN (17:50)
[2023-10-16] MEDS ORDERED: LORazepam 2 MG TAB PO PRN (17:50)
[2023-10-16] MEDS ORDERED: MAALOX 30 ML SUSP *UDC PO PRN (17:50)
[2023-10-16] MEDS: THIAMINE 100 MG TAB PO SCH (22:32)
[2023-10-16] MEDS: NICOTINE 21MG/24HR 1 EA TRANSDERMAL TD PRN (22:36)
[2023-10-16 22:40] VITALS: BP 132/75
[2023-10-16 22:41] VITALS: BP 132/75; TEMP 97.7; O2SAT 98
[2023-10-16] MEDS: traZODone 50 MG TAB PO PRN (22:57)
[2023-10-16] MEDS: OLANZapine ORAL DISINTEGRATING TAB 5MG PO PRN (22:57)
[2023-10-17 06:22] VITALS: BP 103/55; TEMP 97.4; O2SAT 99
[2023-10-17 08:53] VITALS: BP 118/78
[2023-10-17] MEDS: MULTIVITAMINS/MINERALS THERAP 1 TAB PO SCH (09:00)
[2023-10-17] MEDS: FOLIC ACID 1MG TAB PO SCH (09:00)
[2023-10-17] MEDS: CARIPRAZINE 1.5MG CAPSULE (VRAYLAR) PO SCH (09:00)
[2023-10-17] MEDS: THIAMINE 100 MG TAB PO SCH ×2 (09:00→20:18)
[2023-10-17] MEDS: NICOTINE 21MG/24HR 1 EA TRANSDERMAL TD PRN (11:00)
[2023-10-17 14:00] VITALS: BP 149/88; TEMP 98.5; O2SAT 97
[2023-10-17] MEDS: traZODone 50 MG TAB PO PRN (20:18)
[2023-10-18 06:44] VITALS: BP 145/74; TEMP 97.8; O2SAT 95
[2023-10-18] MEDS: CARIPRAZINE 1.5MG CAPSULE (VRAYLAR) PO SCH (08:26)
[2023-10-18] MEDS: MULTIVITAMINS/MINERALS THERAP 1 TAB PO SCH (08:28)
[2023-10-18] MEDS: THIAMINE 100 MG TAB PO SCH ×2 (08:28→21:00)
[2023-10-18] MEDS: FOLIC ACID 1MG TAB PO SCH (08:28)
[2023-10-18] MEDS: NICOTINE 21MG/24HR 1 EA TRANSDERMAL TD PRN (10:05)
[2023-10-18 10:32] LABS: CHOLESTEROL RISK RATIO 2.88 (<5); HDL CHOLESTEROL 55.4 MG/DL (>40); LDL CHOLESTEROL 84.8 MG/DL (<100); NON-HDL-C 104.6 MG/DL
[2023-10-18] MEDS: IBUPROFEN 400MG TAB PO PRN (12:18)
[2023-10-18 16:25] VITALS: BP 113/62; TEMP 98; O2SAT 99
[2023-10-18] MEDS: traZODone 25MG PER 1/2 TABLET PO PRN (22:57)
[2023-10-19 06:32] VITALS: BP 118/53; TEMP 98; O2SAT 98
[2023-10-19 06:48] VITALS: BP 118/53
[2023-10-19] MEDS: CARIPRAZINE 1.5MG CAPSULE (VRAYLAR) PO SCH (08:11)
[2023-10-19] MEDS: FOLIC ACID 1MG TAB PO SCH (08:11)
[2023-10-19] MEDS: THIAMINE 100 MG TAB PO SCH (08:11)
[2023-10-19] MEDS: NICOTINE 21MG/24HR 1 EA TRANSDERMAL TD PRN (08:12)
[2023-10-19] MEDS: MULTIVITAMINS/MINERALS THERAP 1 TAB PO SCH (08:13)
[2023-10-19] MEDS ORDERED: TRAZ-252 PO (12:44)
[2023-10-19] MEDS ORDERED: VITMTA PO (12:44)
[2023-10-19] MEDS ORDERED: VRAY1.5C PO (12:44)
[2023-10-19] MEDS ORDERED: DIPH-435 PO (12:44)
[2023-10-19] MEDS: IBUPROFEN 400MG TAB PO PRN (16:42)
[2023-10-19] MEDS: OLANZapine ORAL DISINTEGRATING TAB 5MG PO PRN (17:23)
[2023-10-19 18:32] VITALS: BP 118/70; TEMP 98.2; O2SAT 95
[2023-10-19] MEDS: traZODone 25MG PER 1/2 TABLET PO PRN (21:14)
[2023-10-20 06:16] VITALS: BP 101/57; TEMP 98.6; O2SAT 97
[2023-10-20] MEDS: CARIPRAZINE 1.5MG CAPSULE (VRAYLAR) PO SCH (08:57)
[2023-10-20] MEDS: FOLIC ACID 1MG TAB PO SCH (08:57)
[2023-10-20] MEDS: MULTIVITAMINS/MINERALS THERAP 1 TAB PO SCH (08:57)
== END 2023-10-20 11:03 | disposition home or self-care (01) | DRG 753 ==
LOC: M ED 13:11 → M ED INP 17:47 → M PSY 21:45
PROVIDERS: ADMIT Student in an Organized Health Care Education/Training Program; ATTEND Student in an Organized Health Care Education/Training Program
DX: F31.9 Bipolar disorder, unspecified (principal); R45.851 Suicidal ideations; F15.10 Other stimulant abuse, uncomplicated; F12.10 Cannabis abuse, uncomplicated; F14.10 Cocaine abuse, uncomplicated; F10.10 Alcohol abuse, uncomplicated; Z63.4 Disappearance and death of family member; S61.512A Laceration without foreign body of left wrist, initial encounter; X78.1XXA Intentional self-harm by knife, initial encounter; Y92.009 Unspecified place in unspecified non-institutional (private) residence as the place of occurrence of the external cause; Y99.8 Other external cause status; Y93.9 Activity, unspecified

== ENCOUNTER 2023-11-25 09:17 | Emergency (ER) | payer MEDICAID, OTHER ==
[~2023-11-25] VITALS: Ht 170.2 cm; Wt 100.6 kg
[~2023-11-25 09:17] MED LIST changes: +DIPH-435 PO; +TRAZ-252 PO; +VITMTA PO; +VRAY1.5C PO
[2023-11-25 09:18] VITALS: BP 139/87; TEMP 97.2; O2SAT 100
== END 2023-11-25 11:06 | disposition left against medical advice (07) ==
LOC: M ED 09:17
DX: Z53.21 Procedure and treatment not carried out due to patient leaving prior to being seen by health care provider (principal)

== ENCOUNTER 2025-06-06 03:13 | Emergency (ER) | payer OTHER, SELFPAY ==
[~2025-06-06 03:13] MED LIST changes: +GABA-1172 PO; -GABA-282 PO
== END 2025-06-06 03:15 | disposition left against medical advice (07) ==
LOC: M ED 03:13
DX: Z53.21 Procedure and treatment not carried out due to patient leaving prior to being seen by health care provider (principal)

== ENCOUNTER 2025-06-10 12:08 | Emergency (ER) | payer SELFPAY ==
[~2025-06-10] VITALS: Ht 175.3 cm; Wt 67.4 kg
[2025-06-10 13:55] LABS: BASO # 0.0 10^3/uL (0.0-0.2); BASO % 0.3 % (0.0-1.0); EOS # 0.1 10^3/uL (0.0-0.5); EOS % 1.4 % (0.0-3.0); LYMPH # 0.5 10^3/uL (1.5-5.0); LYMPH % 7.4 % (24.0-44.0); MONO # 0.4 10^3/uL (0.0-0.8); MONO % 6.8 % (2.0-8.0); NEUTROPHILS # 5.4 10^3/uL (1.5-8.5); NEUTROPHILS % 83.8 % (36.0-66.0); PLATELET COUNT, AUTOMATED 191 10^3/uL (150-450)
[2025-06-10 14:09] LABS: INR 0.96
[2025-06-10] MEDS ORDERED: HOME MED LIST COMPLETE! XX SCH (14:15)
[2025-06-10 14:18] LABS: ALT/SGPT 15 U/L (7.0-40); AST/SGOT 23 U/L (<34); CALCIUM LEVEL 8.6 MG/DL (8.5-10.1); CARBON DIOXIDE LEVEL 27 MMOL/L (20-31); CHLORIDE LEVEL 102 MMOL/L (98-107); CK-MB VALUE MASS 3.2 NG/ML (<3.6); CREATININE FOR GFR 0.88 MG/DL (0.55-1.30); GLOMERULAR FILTRATION RATE > 90.0 (>60); POTASSIUM SERUM 3.5 MMOL/L (3.5-5.1); SODIUM LEVEL 140 MMOL/L (136-145)
[2025-06-10 14:23] LABS: CPK CREATINE PHOSPHOKINASE 113 U/L (34-145); MB/CK RELATIVE INDEX 2.83 (< OR =4)
[2025-06-10 14:30] LABS: HCG, SERUM QUALITATIVE NEGATIVE (NEGATIVE)
[2025-06-10 15:37] LABS: KETONE, URINE AUTO RFX TRACE mg/dL (NEGATIVE); LEUKOCYTE ESTERASE UR AUTO RFX NEGATIVE (NEGATIVE); MUCUS, URINE RFX SMALL (NEGATIVE); NITRITE, URINE AUTO RFX NEGATIVE (NEGATIVE); RBC, URINE AUTO RFX 0 /HPF (0-3); SQUAM EPITHELIAL CELL UR AURFX 2 /HPF (0-6); WBC, URINE AUTO RFX 6 /HPF (0-3)
[2025-06-10] MEDS ORDERED: SULF1TAB23 PO (15:53)
[2025-06-10 16:00] VITALS: BP 120/73
[2025-06-10 16:01] VITALS: TEMP 98.9; O2SAT 81
== END 2025-06-10 16:09 | disposition home or self-care (01) ==
LOC: M ED 12:08
DX: U07.1 COVID-19 (principal); R07.9 Chest pain, unspecified; F17.210 Nicotine dependence, cigarettes, uncomplicated; Z79.2 Long term (current) use of antibiotics

== ENCOUNTER 2025-09-22 01:53 | Inpatient (IN) | payer SELFPAY ==
[~2025-09-22] VITALS: Ht 175.3 cm; Wt 67.9 kg
[2025-09-22] VITALS (28 sets, daily range): BP systolic 114–135; BP diastolic 59–93; TEMP 97.1–98.1; O2SAT 98–100
[~2025-09-22 01:53] MED LIST changes: +SULF1TAB23 PO
[2025-09-22 02:39] LABS: BASO # 0.0 10^3/uL (0.0-0.2); BASO % 0.3 % (0.0-1.0); EOS # 0.2 10^3/uL (0.0-0.5); EOS % 2.1 % (0.0-3.0); LYMPH # 2.0 10^3/uL (1.5-5.0); LYMPH % 20.4 % (24.0-44.0); MONO # 0.6 10^3/uL (0.0-0.8); MONO % 6.0 % (2.0-8.0); NEUTROPHILS # 6.8 10^3/uL (1.5-8.5); NEUTROPHILS % 71.0 % (36.0-66.0); PLATELET COUNT, AUTOMATED 239 10^3/uL (150-450)
[2025-09-22 03:04] LABS: CALCIUM LEVEL 8.4 MG/DL (8.5-10.1); CARBON DIOXIDE LEVEL 29.0 MMOL/L (20-31); CHLORIDE LEVEL 104.0 MMOL/L (98-107); CK-MB VALUE MASS 1.9 NG/ML (<3.6); CREATININE FOR GFR 0.92 MG/DL (0.55-1.30); GLOMERULAR FILTRATION RATE 85.4 (>60); POTASSIUM SERUM 3.8 MMOL/L (3.5-5.1); SODIUM LEVEL 141.0 MMOL/L (136-145)
[2025-09-22] MEDS: ACETAMINOPHEN *IV* 1,000 MG in IV 1 EA IV ONE (03:06)
[2025-09-22 03:12] LABS: CPK CREATINE PHOSPHOKINASE 75.0 U/L (34-145); MB/CK RELATIVE INDEX 2.53 (< OR =4)
[2025-09-22 04:44] LABS: CK-MB VALUE MASS 1.7 NG/ML (<3.6)
[2025-09-22 04:45] LABS: CPK CREATINE PHOSPHOKINASE 62 U/L (34-145); MB/CK RELATIVE INDEX 2.74 (< OR =4)
[2025-09-22] MEDS ORDERED: BISACODYL 10 MG SUPP PR PRN (07:00)
[2025-09-22] MEDS ORDERED: PERCOCET 5MG/325MG TAB PO PRN (07:00)
[2025-09-22] MEDS ORDERED: ONDANSETRON 4MG/2ML VIAL IV PRN (07:00)
[2025-09-22] MEDS ORDERED: LEVALBUTEROL 1.25 MG 0.5ML CONCENTRATE NEB NEB PRN (07:00)
[2025-09-22] MEDS ORDERED: ACETAMINOPHEN 325 MG TAB PO PRN (07:00)
[2025-09-22] MEDS: D5W/0.9% SODIUM CHLORIDE 1,000 ML IV SCH (07:18)
[2025-09-22] MEDS ORDERED: LIDOCAINE 2% MDV 20 ML VIAL As Ordered ONE (07:27)
[2025-09-22] MEDS ORDERED: HOME MED LIST COMPLETE! XX SCH (07:50)
[2025-09-22] MEDS: LIDOCAINE 1% MDV 20 ML VIAL SC STA (08:27)
[2025-09-22] MEDS: MIDAZOLAM INJ 2 MG/2 ML VIAL IV STA (08:27)
[2025-09-22] MEDS: FLUMAZENIL 0.5 MG/5 ML VIAL IV STA (08:27)
[2025-09-22] MEDS: DOCUSATE SODIUM 100 MG CAPSULE PO SCH (09:00)
[2025-09-22] MEDS: MOM 30 ML SUSPENSION UDC PO SCH (09:00)
[2025-09-22] MEDS: KETOROLAC 30 MG/ML 1 ML VIAL IV SCH (09:35)
[2025-09-22] MEDS: LEVALBUTEROL 1.25 MG 0.5ML CONCENTRATE NEB NEB SCH (09:39)
[2025-09-22] MEDS: PANTOPRAZOLE 40MG TAB PO SCH (13:50)
[2025-09-22] MEDS: PERCOCET 5MG/325MG TAB PO PRN (17:15)
[2025-09-23] VITALS: BP 129/68; TEMP 97.8; O2SAT 98
[2025-09-23 04:00] VITALS: BP 114/58; TEMP 97.4; O2SAT 98
[2025-09-23 04:15] LABS: BASO # 0.0 10^3/uL (0.0-0.2); BASO % 0.5 % (0.0-1.0); EOS # 0.2 10^3/uL (0.0-0.5); EOS % 2.7 % (0.0-3.0); LYMPH # 2.3 10^3/uL (1.5-5.0); LYMPH % 27.2 % (24.0-44.0); MONO # 0.6 10^3/uL (0.0-0.8); MONO % 6.8 % (2.0-8.0); NEUTROPHILS # 5.4 10^3/uL (1.5-8.5); NEUTROPHILS % 62.4 % (36.0-66.0); PLATELET COUNT, AUTOMATED 208 10^3/uL (150-450)
[2025-09-23 04:36] LABS: CALCIUM LEVEL 7.7 MG/DL (8.5-10.1); CARBON DIOXIDE LEVEL 26.0 MMOL/L (20-31); CHLORIDE LEVEL 107.0 MMOL/L (98-107); CREATININE FOR GFR 0.94 MG/DL (0.55-1.30); GLOMERULAR FILTRATION RATE 83.2 (>60); POTASSIUM SERUM 3.9 MMOL/L (3.5-5.1); SODIUM LEVEL 142.0 MMOL/L (136-145)
[2025-09-23 08:00] VITALS: BP 102/69; TEMP 97.9; O2SAT 99
[2025-09-23] MEDS: ENOXAPARIN 40 MG/0.4 ML SYRINGE (J1650 PER 10MG) SC SCH (08:03)
[2025-09-23 11:39] VITALS: BP 108/62; TEMP 97.4; O2SAT 98
== END 2025-09-23 14:17 | disposition left against medical advice (07) | DRG 143 ==
LOC: M ED 01:53 → M ED INP 06:58 → M ICU 07:32
PROVIDERS: ADMIT Internal Medicine; ATTEND Internal Medicine
PROC: 0W9B30Z Drainage of Left Pleural Cavity with Drainage Device, Percutaneous Approach (ICD-10-PCS; principal; 2025-09-22)
PROC: 0WP830Z Removal of Drainage Device from Chest Wall, Percutaneous Approach (ICD-10-PCS; 2025-09-23)
DX: J93.11 Primary spontaneous pneumothorax (principal); F32.A Depression, unspecified; F15.10 Other stimulant abuse, uncomplicated; F41.8 Other specified anxiety disorders; F17.210 Nicotine dependence, cigarettes, uncomplicated